=== PATIENT | male | born 1975 | race Caucasian/White ===

== ENCOUNTER 2018-04-27 20:24 | Emergency (ER) | payer BC ==
[2018-04-27 20:33] VITALS: RESP 18; TEMP 98.2
[2018-04-27] MEDS ORDERED: methylPREDNISolone SOD SUCCI 125 MG/2 ML VIAL IV STA (21:07)
[2018-04-27] MEDS ORDERED: KETOROLAC 30 MG/ML 1 ML VIAL IVP STA (21:08)
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
[2018-04-27 21:43] VITALS: BP 137/72; PULSE 85
== END 2018-04-27 21:42 | disposition home or self-care (01) ==
LOC: EC 20:24
DX: M54.12 Radiculopathy, cervical region (principal); I10 Essential (primary) hypertension; Z87.891 Personal history of nicotine dependence
CPT/HCPCS: 93005; 99284; 96374; 96375; J2930; J1885

== ENCOUNTER 2019-10-23 22:37 | Emergency (ER) | payer BC ==
[2019-10-23 23:00] VITALS: RESP 18
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
--- NOTE | 2019-10-24 00:32 | XR ---
EXAMINATION TYPE: XR elbow complete RT DATE OF EXAM: 10/24/2019 COMPARISON: NONE HISTORY: Pain TECHNIQUE: 3 views FINDINGS: I see no fracture nor dislocation. Elbow joint spaces are fairly normal. There is spurring on the olecranon process of the ulna. There is no sign of joint effusion. IMPRESSION: Mild spurring. Otherwise negative exam. No fracture seen.
--- NOTE | 2019-10-24 00:33 | XR ---
EXAMINATION TYPE: XR ankle complete LT DATE OF EXAM: 10/24/2019 COMPARISON: NONE HISTORY: Pain TECHNIQUE: 3 views FINDINGS: There is soft tissue swelling over the lateral malleolus. Ankle mortise is anatomic. Joint spaces are normal. IMPRESSION: Soft tissue swelling. No fracture seen.
--- NOTE | 2019-10-24 00:43 | XR ---
EXAMINATION TYPE: XR shoulder complete LT DATE OF EXAM: 10/24/2019 COMPARISON: NONE HISTORY: Pain TECHNIQUE: 3 views FINDINGS: I see no fracture nor dislocation. Glenohumeral joint is intact. There are no pathologic ca lcifications. IMPRESSION: Negative left shoulder exam.
--- NOTE | 2019-10-24 00:44 | XR ---
EXAMINATION TYPE: XR chest 2V DATE OF EXAM: 10/24/2019 COMPARISON: 06/12/2015 HISTORY: Chest pain TECHNIQUE: Frontal and lateral views of the chest are obtained. FINDINGS: Heart and mediastinum are normal. Lungs are clear. Diaphragm is normal. Bony thorax is int act. Pulmonary vascularity is normal. There is no pleural effusion or pneumothorax. IMPRESSION: Normal chest. No change.
[2019-10-24] MEDS ORDERED: FLUORESCEIN STRIPS 1 MG STRIP RIGHT EYE ONE (01:01)
[2019-10-24] MEDS ORDERED: PROPARACAINE 0.5% OPHTH DROPS 15 ML BTL RIGHT EYE STA (01:01)
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
[2019-10-24 01:17] VITALS: BP 127/91; PULSE 106; TEMP 98.2
== END 2019-10-24 01:25 | disposition home or self-care (01) ==
LOC: EC 22:37
DX: S09.90XA Unspecified injury of head, initial encounter (principal); M25.572 Pain in left ankle and joints of left foot; F10.129 Alcohol abuse with intoxication, unspecified; J32.2 Chronic ethmoidal sinusitis; S00.12XA Contusion of left eyelid and periocular area, initial encounter; S00.11XA Contusion of right eyelid and periocular area, initial encounter; I10 Essential (primary) hypertension; F17.200 Nicotine dependence, unspecified, uncomplicated; Y04.0XXA Assault by unarmed brawl or fight, initial encounter
CPT/HCPCS: 29515; 70450; 70486; 71046; 72125; 82075; 99284

== ENCOUNTER 2020-07-20 06:14 | Emergency (ER) | payer BC ==
[2020-07-20 06:19] VITALS: TEMP 98.6
[2020-07-20] MEDS ORDERED: SODIUM CHLORIDE 0.9% 1,000 ML IV STA (06:30)
[2020-07-20] MEDS ORDERED: SODIUM CHLORIDE 0.9% 500 ML 500 ML IV STA (06:30)
--- NOTE | 2020-07-20 06:33 | ED ---
General Adult HPI - General Chief complaint: Urogenital Stated complaint: unable to urinate Time Seen by Provider: 07/20/20 06:24 Source: patient, RN notes reviewed, old records reviewed Mode of arrival: ambulatory Limitations: no limitations - History of Present Illness Initial comments: Patient is a 44-year-old male presents for in terms today with chief complaint of urinary retention. Patient reports that the last time he urinated was at 7:00 last night. He reports these been drinking plenty of water. He denies any significant abdominal pain at this time. He does report some minor right flank pain. Patient also mentioned to triage nurse that he's been having some intermittent episodes of chest discomfort shooting pains down both arms for the past 2 days. He reports the symptoms occur at rest and with certain movements. He states that his history of hypertension but no previous cardiac disease. Patient states that he's had no history of enlarged prostate regards to urinary retention or significant history of kidney stones. States he's had no change in urination prior to this. He does report frequent constipation episodes sees had bowel resection surgery as a child. Patient states that he has had no falls or trauma to the lower back. He denies any peripheral paresthesias on the lower extremities. He did have a bowel movement this morning. - Related Data Home Medications Medication Instructions Recorded Confirmed Acetaminophen Tab [Tylenol] 650 mg PO Q6H PRN 07/20/20 07/20/20 Ibuprofen [Motrin Ib] 400 mg PO Q6H PRN 07/20/20 07/20/20 Allergies Allergy/AdvReac Type Severity Reaction Status Date / Time No Known Allergies Allergy Verified 07/20/20 08:05 Review of Systems ROS Statement: Those systems with pertinent positive or pertinent negative responses have been documented in the HPI. ROS Other: All systems not noted in ROS Statement are negative. Past Medical History Past Medical History: Hyperlipidemia, Hypertension Additional Past Medical History / Comment(s): 05/01/15 Pt admitted with small partial bowel obstruction. He started about 2300 last nite with R sided low abdominal pain which eventually involved the L lower abdomin. He is nauseated but had not vomitted yet. Walking increased R and L lower abdominal pain. Other HX: Pt states he has had high cholesterol in the past and his B/P was elevated in the ER today, 11/2014 contact dematitis with impetigo. History of Any Multi-Drug Resistant Organisms: None Reported Past Surgical History: Hernia Repair Additional Past Surgical History / Comment(s): L inguinal hernia repair. Colon surgery as a . Past Anesthesia/Blood Transfusion Reactions: No Reported Reaction Additional Past Anesthesia/Blood Transfusion Reaction / Comment(s): Pt has never recieved blood. Past Psychological History: No Psychological Hx Reported Smoking Status: Former smoker Past Alcohol Use History: Occasional Past Drug Use History: None Reported - Past Family History Father History Unknown: Yes Mother Family Medical History: Hypertension, Thyroid Disorder General Exam - General Exam Comments Initial Comments: 44-year-old male. Alert and oriented 3. Limitations: no limitations General appearance: alert Head exam: Present: atraumatic, normocephalic, normal inspection Eye exam: Present: normal appearance, PERRL, EOMI. Absent: scleral icterus, conjunctival injection, periorbital swelling ENT exam: Present: normal exam, mucous membranes moist Neck exam: Present: normal inspection. Absent: tenderness, meningismus, lymphadenopathy Respiratory exam: Present: normal lung sounds bilaterally. Absent: respiratory distress, wheezes, rales, rhonchi, stridor Cardiovascular Exam: Present: regular rate, normal rhythm, normal heart sounds. Absent: systolic murmur, diastolic murmur, rubs, gallop, clicks GI/Abdominal exam: Present: soft, normal bowel sounds. Absent: distended, tenderness, guarding, rebound, rigid Extremities exam: Present: normal inspection, full ROM, normal capillary refill. Absent: tenderness, pedal edema, joint swelling, calf tenderness Back exam: Present: normal inspection Neurological exam: Present: alert, oriented X3, CN II-XII intact Psychiatric exam: Present: normal affect, normal mood Skin exam: Present: warm, dry, intact, normal color. Absent: rash Course Vital Signs 07/20/20 07/20/20 06:15 08:25 Temperature 98.6 F 98.6 F Pulse Rate 110 H 88 Respiratory 20 19 Rate Blood Pressure 156/85 140/90 O2 Sat by Pulse 97 97 Oximetry - Reevaluation(s) Reevaluation #1: 07/20/20 07:25 Patient had a bladder scan which showed a total of 1 50 mL to 200 mL of urine within the bladder. EKG Findings - EKG Comments: EKG Findings:: EKG shows sinus tachycardia possible left atrial monitor. Borderline EKG. Ventricular rate of 10 1 bpm. Verbal is 154 ms. QRS duration 78 ms. QT QTc is 346/448 ms Medical Decision Making - Medical Decision Making Patient was reevaluated respiratory med. He is able to urinate on his own states he is feeling better at this time. Discussed possible passing kidney stone, however his urine shows no blood or any other significant signss of infection. Pt has normal EKG and labs are unremarkable including troponin. Discussed with the paresthesias on his arms likely pinched nerve pain. Discussed Patient instructed to follow-up with his primary care physician. He states he feels well unable to urinate he would like to go home. Discussed if he has any other further pains or other complaints he can return for rebound. His KUB did show constipation which could contribute to his difficulty with urination. Advised. First normal bowel movements. - Lab Data Result diagrams: 07/20/20 06:47 07/20/20 06:47 Lab Results 07/20/20 07/20/20 07/20/20 Range/Units 06:47 06:47 06:47 WBC 11.3 H (3.8-10.6) k/uL RBC 5.33 (4.30-5.90) m/uL Hgb 16.6 (13.0-17.5) gm/dL Hct 49.6 (39.0-53.0) % MCV 93.0 (80.0-100.0) fL MCH 31.1 (25.0-35.0) pg MCHC 33.5 (31.0-37.0) g/dL RDW 13.3 (11.5-15.5) % Plt Count 197 (150-450) k/uL Neutrophils % 67 % Lymphocytes % 22 % Monocytes % 6 % Eosinophils % 3 % Basophils % 1 % Neutrophils # 7.6 (1.3-7.7) k/uL Lymphocytes # 2.5 (1.0-4.8) k/uL Monocytes # 0.7 (0-1.0) k/uL Eosinophils # 0.3 (0-0.7) k/uL Basophils # 0.1 (0-0.2) k/uL PT 9.9 (9.0-12.0) sec INR 1.0 (<1.2) APTT 22.0 (22.0-30.0) sec Sodium 138 (137-145) mmol/L Potassium 3.7 (3.5-5.1) mmol/L Chloride 104 (98-107) mmol/L Carbon Dioxide 25 (22-30) mmol/L Anion Gap 9 mmol/L BUN 13 (9-20) mg/dL Creatinine 1.40 H (0.66-1.25) mg/dL Est GFR (CKD-EPI)AfAm 69 (>60 ml/min/1.73 sqM) Est GFR (CKD-EPI)NonAf 60 (>60 ml/min/1.73 sqM) Glucose 95 (74-99) mg/dL Calcium 9.3 (8.4-10.2) mg/dL Magnesium 1.7 (1.6-2.3) mg/dL Total Bilirubin 1.2 (0.2-1.3) mg/dL AST 58 (17-59) U/L ALT 63 H (4-49) U/L Alkaline Phosphatase 97 (38-126) U/L Troponin I (0.000-0.034) ng/mL Total Protein 7.6 (6.3-8.2) g/dL Albumin 4.7 (3.5-5.0) g/dL Lipase 135 (23-300) U/L Urine Color Urine Appearance (Clear) Urine pH (5.0-8.0) Ur Specific [place] (1.001-1.035) Urine Protein (Negative) Urine Glucose (UA) (Negative) Urine Ketones (Negative) Urine Blood (Negative) Urine Nitrite (Negative) Urine Bilirubin (Negative) Urine Urobilinogen (<2.0) mg/dL Ur Leukocyte Esterase (Negative) 07/20/20 07/20/20 Range/Units 06:47 08:19 WBC (3.8-10.6) k/uL RBC (4.30-5.90) m/uL Hgb (13.0-17.5) gm/dL Hct (39.0-53.0) % MCV (80.0-100.0) fL MCH (25.0-35.0) pg MCHC (31.0-37.0) g/dL RDW (11.5-15.5) % Plt Count (150-450) k/uL Neutrophils % % Lymphocytes % % Monocytes % % Eosinophils % % Basophils % % Neutrophils # (1.3-7.7) k/uL Lymphocytes # (1.0-4.8) k/uL Monocytes # (0-1.0) k/uL Eosinophils # (0-0.7) k/uL Basophils # (0-0.2) k/uL PT (9.0-12.0) sec INR (<1.2) APTT (22.0-30.0) sec Sodium (137-145) mmol/L Potassium (3.5-5.1) mmol/L Chloride (98-107) mmol/L Carbon Dioxide (22-30) mmol/L Anion Gap mmol/L BUN (9-20) mg/dL Creatinine (0.66-1.25) mg/dL Est GFR (CKD-EPI)AfAm (>60 ml/min/1.73 sqM) Est GFR (CKD-EPI)NonAf (>60 ml/min/1.73 sqM) Glucose (74-99) mg/dL Calcium (8.4-10.2) mg/dL Magnesium (1.6-2.3) mg/dL Total Bilirubin (0.2-1.3) mg/dL AST (17-59) U/L ALT (4-49) U/L Alkaline Phosphatase (38-126) U/L Troponin I <0.012 (0.000-0.034) ng/mL Total Protein (6.3-8.2) g/dL Albumin (3.5-5.0) g/dL Lipase (23-300) U/L Urine Color Yellow Urine Appearance Clear (Clear) Urine pH 5.5 (5.0-8.0) Ur Specific [place] 1.017 (1.001-1.035) Urine Protein Negative (Negative) Urine Glucose (UA) Negative (Negative) Urine Ketones 1+ H (Negative) Urine Blood Negative (Negative) Urine Nitrite Negative (Negative) Urine Bilirubin Negative (Negative) Urine Urobilinogen <2.0 (<2.0) mg/dL Ur Leukocyte Esterase Negative (Negative) - Radiology Data Radiology results: report reviewed Chest x-ray shows no acute cardio coronary process. KUB shows no free air. Or bowel ejection. Mild stool burn. Disposition Clinical Impression: Constipation, Difficulty in urination Disposition: HOME SELF-CARE Condition: Good Instructions (If sedation given, give patient instructions): Constipation (ED) Additional Instructions: Encouraged fluid intake. Follow-up with PCP. Use stool softners to help promote bowel movements. Is patient prescribed a controlled substance at d/c from ED?: No Referrals: None,Stated [Primary Care Provider] - 1-2 days Time of Disposition: 09:28
[2020-07-20 06:55] LABS: Basophils # (A) 0.1 k/uL (0-0.2); Basophils % (A) 1 %; Eosinophils # (A) 0.3 k/uL (0-0.7); Eosinophils % (A) 3 %; HCT 49.6 % (39.0-53.0); HGB 16.6 gm/dL (13.0-17.5); Lymphocytes # (A) 2.5 k/uL (1.0-4.8); Lymphocytes % (A) 22 %; MCH 31.1 pg (25.0-35.0); MCHC 33.5 g/dL (31.0-37.0); Mean Platelet Volume 7.6; Monocytes # (A) 0.7 k/uL (0-1.0); Monocytes % (A) 6 %; Neutrophils # (A) 7.6 k/uL (1.3-7.7); Neutrophils % (A) 67 %; Platelet Count 197 k/uL (150-450); RBC 5.33 m/uL (4.30-5.90); RDW 13.3 % (11.5-15.5); WBC 11.3 k/uL (3.8-10.6)
[2020-07-20 07:02] LABS: Prothrombin Time 9.9 sec (9.0-12.0)
[2020-07-20] MEDS ORDERED: KETOROLAC 15 MG/ML 1 ML VIAL IVP STA (07:04)
[2020-07-20 07:06] LABS: Albumin 4.7 g/dL (3.5-5.0); Calcium 9.3 mg/dL (8.4-10.2); Magnesium 1.7 mg/dL (1.6-2.3); Potassium 3.7 mmol/L (3.5-5.1); Total Bilirubin 1.2 mg/dL (0.2-1.3); Total Protein 7.6 g/dL (6.3-8.2)
--- NOTE | 2020-07-20 07:13 | XR ---
EXAMINATION TYPE: XR chest 2V DATE OF EXAM: 07/20/2020 COMPARISON: None HISTORY: 44-year-old male with chest pain TECHNIQUE: PA and lateral views FINDINGS: The cardiomediastinal silhouette, aorta, and pulmonary vasculature are within normal limits. Lungs an d pleural spaces are clear. IMPRESSION: No acute cardiopulmonary process.
--- NOTE | 2020-07-20 07:14 | XR ---
EXAMINATION TYPE: XR KUB DATE OF EXAM: 07/20/2020 Comparison: 01/29/2016 Clinical History: 44-year-old male pain Findings: No evidence for free intraperitoneal air. No dilated small bowel or air-fluid levels. Scattered mild stool. Air extends distally to the rectum. No suspicious calcifications are seen. Superior femoral head neck junction osseous excrescences can predispose the patient to femoral acetab ular impingement syndrome. Correlate for any chronic hip pain. Impression: No free air or bowel obstruction. Mild stool burden.
[2020-07-20] MEDS ORDERED: SODIUM CHLORIDE 0.9% 2,000 ML IV ONE (07:24)
[2020-07-20 08:35] LABS: Appearance,Urine Clear (Clear); Bilirubin,Urine Negative (Negative); Blood,Urine Negative (Negative); Color,Urine Yellow; Glucose,Urine (UA) Negative (Negative); Ketones,Urine 1+ (Negative); Leukocyte Esterase,Urine Negative (Negative); Nitrite,Urine Negative (Negative); PH, Urine 5.5 (5.0-8.0); Protein,Urine Negative (Negative); Specific Gravity,Urine 1.017 (1.001-1.035); Urobilinogen,Urine <2.0 mg/dL (<2.0)
[2020-07-20 10:03] VITALS: BP 133/95; PULSE 91; RESP 18
== END 2020-07-20 10:03 | disposition home or self-care (01) ==
LOC: EC 06:14
DX: K59.00 Constipation, unspecified (principal); R39.198 Other difficulties with micturition; Z87.891 Personal history of nicotine dependence
CPT/HCPCS: 36415; 93005; 83880; 80053; 83690; 83735; 84484; 85025; 85610; 85730; 81003; 71046; 74018; 99284; 96374; 96361 ×3; J1885

== ENCOUNTER 2020-09-22 13:19 | Emergency (ER) | payer BC ==
[2020-09-22 13:23] VITALS: TEMP 98.1
[2020-09-22] MEDS ORDERED: SODIUM CHLORIDE 0.9% 1,000 ML IV STA (13:28)
[2020-09-22] MEDS ORDERED: KETOROLAC 15 MG/ML 1 ML VIAL IVP STA (13:28)
--- NOTE | 2020-09-22 13:30 | ED ---
General Adult HPI - General Chief complaint: Abdominal Pain Stated complaint: Flank Pain Time Seen by Provider: 09/22/20 13:24 Source: patient, RN notes reviewed Mode of arrival: ambulatory Limitations: no limitations - History of Present Illness Initial comments: Patient is a pleasant 44-year-old male presenting to the emergency Department with complaints of right flank pain. Onset of symptoms was around a week ago. Symptoms do wax and wane. Discomfort mild at this time. Discomfort is sometimes worse with position changes or laying down in bed. Patient thinks his urine may be a little bit darker than normal. No dysuria or hematuria. Patient did have similar symptoms this summer however they resolved after a few days. No fever. No nausea vomiting. No constipation or diarrhea. No injury. - Related Data Home Medications Medication Instructions Recorded Confirmed Acetaminophen Tab [Tylenol] 650 mg PO Q6H PRN 07/20/20 07/20/20 Ibuprofen [Motrin Ib] 400 mg PO Q6H PRN 07/20/20 07/20/20 Previous Rx's Medication Instructions Recorded Cyclobenzaprine [Flexeril] 10 mg PO TID PRN #12 tablet 09/22/20 Allergies Allergy/AdvReac Type Severity Reaction Status Date / Time No Known Allergies Allergy Verified 09/22/20 13:23 Review of Systems ROS Statement: Those systems with pertinent positive or pertinent negative responses have been documented in the HPI. ROS Other: All systems not noted in ROS Statement are negative. Constitutional: Denies: fever Eyes: Denies: eye pain ENT: Denies: ear pain Respiratory: Denies: cough Cardiovascular: Denies: chest pain Endocrine: Denies: fatigue Gastrointestinal: Reports: as per HPI. Denies: nausea, vomiting Genitourinary: Reports: as per HPI. Denies: dysuria Musculoskeletal: Reports: as per HPI Skin: Denies: rash Neurological: Denies: weakness Past Medical History Past Medical History: Hyperlipidemia, Hypertension Additional Past Medical History / Comment(s): 05/01/15 Pt admitted with small partial bowel obstruction. He started about 2300 last nite with R sided low abdominal pain which eventually involved the L lower abdomin. He is nauseated but had not vomitted yet. Walking increased R and L lower abdominal pain. Other HX: Pt states he has had high cholesterol in the past and his B/P was elevated in the ER today, 11/2014 contact dematitis with impetigo. History of Any Multi-Drug Resistant Organisms: None Reported Past Surgical History: Hernia Repair Additional Past Surgical History / Comment(s): L inguinal hernia repair. Colon surgery as a . Past Anesthesia/Blood Transfusion Reactions: No Reported Reaction Additional Past Anesthesia/Blood Transfusion Reaction / Comment(s): Pt has never recieved blood. Past Psychological History: No Psychological Hx Reported Smoking Status: Former smoker Past Alcohol Use History: Occasional Past Drug Use History: None Reported - Past Family History Father History Unknown: Yes Mother Family Medical History: Hypertension, Thyroid Disorder General Exam Limitations: no limitations General appearance: alert, in no apparent distress Eye exam: Present: normal appearance Neck exam: Present: normal inspection Respiratory exam: Present: normal lung sounds bilaterally Cardiovascular Exam: Present: regular rate, normal rhythm Expanded Peripheral pulses: 2+: Posterior Tibialis (R), Posterior Tibialis (L) GI/Abdominal exam: Present: soft. Absent: distended, tenderness, guarding, rebound, rigid, pulsatile mass Extremities exam: Present: normal inspection Back exam: Present: tenderness (Mild tenderness below the right CVA) Neurological exam: Present: alert. Absent: motor sensory deficit Psychiatric exam: Present: normal affect, normal mood Skin exam: Present: normal color Course Vital Signs 09/22/20 13:21 Temperature 98.1 F Pulse Rate 87 Respiratory 20 Rate Blood Pressure 175/94 O2 Sat by Pulse 20 L Oximetry Medical Decision Making - Medical Decision Making Patient reevaluated and updated. Patient is feeling much better following Toradol. - Lab Data Result diagrams: 09/22/20 13:39 09/22/20 13:39 Lab Results 09/22/20 09/22/20 09/22/20 Range/Units 13:39 13:39 13:39 WBC 8.7 (3.8-10.6) k/uL RBC 5.74 (4.30-5.90) m/uL Hgb 17.9 H (13.0-17.5) gm/dL Hct 54.6 H (39.0-53.0) % MCV 95.1 (80.0-100.0) fL MCH 31.1 (25.0-35.0) pg MCHC 32.7 (31.0-37.0) g/dL RDW 13.2 (11.5-15.5) % Plt Count 226 (150-450) k/uL Neutrophils % 70 % Lymphocytes % 20 % Monocytes % 5 % Eosinophils % 2 % Basophils % 1 % Neutrophils # 6.1 (1.3-7.7) k/uL Lymphocytes # 1.7 (1.0-4.8) k/uL Monocytes # 0.5 (0-1.0) k/uL Eosinophils # 0.2 (0-0.7) k/uL Basophils # 0.1 (0-0.2) k/uL PT 9.6 (9.0-12.0) sec INR 0.9 (<1.2) APTT 23.1 (22.0-30.0) sec Sodium (137-145) mmol/L Potassium (3.5-5.1) mmol/L Chloride (98-107) mmol/L Carbon Dioxide (22-30) mmol/L Anion Gap mmol/L BUN (9-20) mg/dL Creatinine (0.66-1.25) mg/dL Est GFR (CKD-EPI)AfAm (>60 ml/min/1.73 sqM) Est GFR (CKD-EPI)NonAf (>60 ml/min/1.73 sqM) Glucose (74-99) mg/dL Calcium (8.4-10.2) mg/dL Total Bilirubin (0.2-1.3) mg/dL AST (17-59) U/L ALT (4-49) U/L Alkaline Phosphatase (38-126) U/L Total Protein (6.3-8.2) g/dL Albumin (3.5-5.0) g/dL Amylase (30-110) U/L Lipase (23-300) U/L Urine Color Yellow Urine Appearance Clear (Clear) Urine pH 5.5 (5.0-8.0) Ur Specific [place] 1.024 (1.001-1.035) Urine Protein Negative (Negative) Urine Glucose (UA) Negative (Negative) Urine Ketones Negative (Negative) Urine Blood Negative (Negative) Urine Nitrite Negative (Negative) Urine Bilirubin Negative (Negative) Urine Urobilinogen <2.0 (<2.0) mg/dL Ur Leukocyte Esterase Negative (Negative) 30/20 Range/Units 13:39 WBC (3.8-10.6) k/uL RBC (4.30-5.90) m/uL Hgb (13.0-17.5) gm/dL Hct (39.0-53.0) % MCV (80.0-100.0) fL MCH (25.0-35.0) pg MCHC (31.0-37.0) g/dL RDW (11.5-15.5) % Plt Count (150-450) k/uL Neutrophils % % Lymphocytes % % Monocytes % % Eosinophils % % Basophils % % Neutrophils # (1.3-7.7) k/uL Lymphocytes # (1.0-4.8) k/uL Monocytes # (0-1.0) k/uL Eosinophils # (0-0.7) k/uL Basophils # (0-0.2) k/uL PT (9.0-12.0) sec INR (<1.2) APTT (22.0-30.0) sec Sodium 138 (137-145) mmol/L Potassium 4.8 (3.5-5.1) mmol/L Chloride 107 (98-107) mmol/L Carbon Dioxide 25 (22-30) mmol/L Anion Gap 6 mmol/L BUN 15 (9-20) mg/dL Creatinine 0.97 (0.66-1.25) mg/dL Est GFR (CKD-EPI)AfAm >90 (>60 ml/min/1.73 sqM) Est GFR (CKD-EPI)NonAf >90 (>60 ml/min/1.73 sqM) Glucose 105 H (74-99) mg/dL Calcium 9.5 (8.4-10.2) mg/dL Total Bilirubin 0.6 (0.2-1.3) mg/dL AST 43 (17-59) U/L ALT 61 H (4-49) U/L Alkaline Phosphatase 99 (38-126) U/L Total Protein 7.6 (6.3-8.2) g/dL Albumin 4.4 (3.5-5.0) g/dL Amylase 89 (30-110) U/L Lipase 319 H (23-300) U/L Urine Color Urine Appearance (Clear) Urine pH (5.0-8.0) Ur Specific [place] (1.001-1.035) Urine Protein (Negative) Urine Glucose (UA) (Negative) Urine Ketones (Negative) Urine Blood (Negative) Urine Nitrite (Negative) Urine Bilirubin (Negative) Urine Urobilinogen (<2.0) mg/dL Ur Leukocyte Esterase (Negative) - Radiology Data Radiology results: report reviewed (Computed tomography scan abdomen pelvis shows possible constipation otherwise no acute abnormality) Disposition Clinical Impression: Flank pain Disposition: HOME SELF-CARE Condition: Stable Instructions (If sedation given, give patient instructions): Flank Pain (ED), Constipation (ED), High Fiber Diet (ED) Additional Instructions: Please follow-up with primary care physician in the next couple of days for recheck. Drink half bottle of magnesium citrate now and half tomorrow if needed . Prescription for muscle relaxers has been sent to your pharmacy: [facility] Prescriptions: Cyclobenzaprine [Flexeril] 10 mg PO TID PRN #12 tablet PRN Reason: Pain Is patient prescribed a controlled substance at d/c from ED?: No Referrals: Bernardo Martinez [STAFF PHYSICIAN] - 1-2 days Time of Disposition: 14:37
[2020-09-22 14:02] LABS: ALT 61 U/L (4-49); AST 43 U/L (17-59); African American GFR (CKD) >90 (>60 ml/min/1.73 sqM); Albumin 4.4 g/dL (3.5-5.0); Alkaline Phosphatase 99 U/L (38-126); Amylase 89 U/L (30-110); Anion Gap 6 mmol/L; Blood Urea Nitrogen 15 mg/dL (9-20); Calcium 9.5 mg/dL (8.4-10.2); Carbon Dioxide 25 mmol/L (22-30); Chloride 107 mmol/L (98-107); Glucose 105 mg/dL (74-99); Non-African American GFR(CKD) >90 (>60 ml/min/1.73 sqM); Potassium 4.8 mmol/L (3.5-5.1); Sodium 138 mmol/L (137-145); Total Bilirubin 0.6 mg/dL (0.2-1.3); Total Protein 7.6 g/dL (6.3-8.2)
[2020-09-22 14:05] LABS: Basophils # (A) 0.1 k/uL (0-0.2); Basophils % (A) 1 %; Eosinophils # (A) 0.2 k/uL (0-0.7); Eosinophils % (A) 2 %; HCT 54.6 % (39.0-53.0); HGB 17.9 gm/dL (13.0-17.5); Lymphocytes # (A) 1.7 k/uL (1.0-4.8); Lymphocytes % (A) 20 %; MCH 31.1 pg (25.0-35.0); MCHC 32.7 g/dL (31.0-37.0); MCV 95.1 fL (80.0-100.0); Mean Platelet Volume 7.5; Monocytes # (A) 0.5 k/uL (0-1.0); Monocytes % (A) 5 %; Neutrophils # (A) 6.1 k/uL (1.3-7.7); Neutrophils % (A) 70 %; Platelet Count 226 k/uL (150-450); RBC 5.74 m/uL (4.30-5.90); RDW 13.2 % (11.5-15.5); WBC 8.7 k/uL (3.8-10.6)
[2020-09-22 14:12] LABS: Appearance,Urine Clear (Clear); Bilirubin,Urine Negative (Negative); Blood,Urine Negative (Negative); Color,Urine Yellow; Glucose,Urine (UA) Negative (Negative); INR 0.9 (<1.2); Ketones,Urine Negative (Negative); Leukocyte Esterase,Urine Negative (Negative); Nitrite,Urine Negative (Negative); PH, Urine 5.5 (5.0-8.0); Partial Thromboplastin Time 23.1 sec (22.0-30.0); Protein,Urine Negative (Negative); Prothrombin Time 9.6 sec (9.0-12.0); Specific Gravity,Urine 1.024 (1.001-1.035); Urobilinogen,Urine <2.0 mg/dL (<2.0)
--- NOTE | 2020-09-22 14:29 | CT ---
EXAMINATION TYPE: CT abdomen pelvis wo con DATE OF EXAM: 09/22/2020 COMPARISON: CT abdomen pelvis 07/27/2015 HISTORY: Right flank pain for 6 days, negative renal stones and gross hematuria CT DLP: 534.6 mGycm Automated exposure control for dose reduction was used. TECHNIQUE: Helical acquisition of images was performed from the lung bases through the pelvis. CONTRAST: Performed without Oral Contrast and without intravenous contrast. FINDINGS: LUNG BASES: Normal. LIVER: Normal attenuation and size. BILIARY SYSTEM: No intrahepatic or extrahepatic biliary ductal dilatation. PANCREAS: No peripancreatic stranding or fluid collection. SPLEEN: Not enlarged. ADRENALS: Normal. KIDNEYS: No hydronephrosis or urolithiasis. BOWEL: No obstruction or thickening. Appendix demonstrates appendicolith and is otherwise normal. Th ere is diffuse small bowel feces sign. Moderate amount of diffuse colonic fecal debris. PERITONEUM: No pneumoperitoneum. No free fluid. LYMPH NODES: No lymphadenopathy. PELVIS: Left hydrocele. Nondistended urinary bladder. VASCULATURE: No abdominal aortic aneurysm. MUSCULOSKELETAL: Degenerative changes of the spine. IMPRESSION: 1. No hydronephrosis or nephrolithiasis. 2. Nonspecific fecalization of the small bowel, with no evidence of bowel obstruction. Findings may r epresent slowed intestinal transit. Correlate for constipation. 3. Left hydrocele.
[2020-09-22] MEDS ORDERED: MAGNESIUM CITRATE 296 ML BOTTLE PO ONE (14:38)
[2020-09-22 15:09] VITALS: BP 158/74; PULSE 82; RESP 16
== END 2020-09-22 15:08 | disposition home or self-care (01) ==
LOC: EC 13:19
DX: R10.9 Unspecified abdominal pain (principal); Z87.891 Personal history of nicotine dependence
CPT/HCPCS: 36415; 80053; 82150; 83690; 85025; 85610; 85730; 81003; 74176; 99284; 96374; 96361; J1885

== ENCOUNTER 2021-09-25 23:16 | Emergency (ER) | payer BC ==
[2021-09-25] MEDS ORDERED: SODIUM CHLORIDE 0.9% 1,000 ML IV STA (23:55)
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
--- NOTE | 2021-09-26 00:16 | XR ---
EXAMINATION TYPE: XR chest 1V portable DATE OF EXAM: 09/26/2021 COMPARISON: 07/20/2020 HISTORY: Short of breath TECHNIQUE: FINDINGS: Heart and mediastinum are normal. Lungs are clear. Diaphragm is normal. Bony thorax appears normal. IMPRESSION: Normal chest. No change.
[2021-09-26 00:24] LABS: VBG PH 7.41 (7.31-7.41)
[2021-09-26 00:28] LABS: Basophils # (A) 0.1 k/uL (0-0.2); Basophils % (A) 1 %; Eosinophils # (A) 0.2 k/uL (0-0.7); Eosinophils % (A) 2 %; HCT 47.5 % (39.0-53.0); HGB 16.3 gm/dL (13.0-17.5); Lymphocytes # (A) 2.3 k/uL (1.0-4.8); Lymphocytes % (A) 22 %; MCH 31.8 pg (25.0-35.0); MCHC 34.4 g/dL (31.0-37.0); MCV 92.5 fL (80.0-100.0); Mean Platelet Volume 7.8; Monocytes # (A) 0.5 k/uL (0-1.0); Monocytes % (A) 5 %; Neutrophils # (A) 7.1 k/uL (1.3-7.7); Neutrophils % (A) 68 %; Platelet Count 241 k/uL (150-450); RBC 5.13 m/uL (4.30-5.90); RDW 13.9 % (11.5-15.5); WBC 10.4 k/uL (3.8-10.6)
[2021-09-26 00:32] LABS: INR 0.9 (<1.2); Partial Thromboplastin Time 22.6 sec (22.0-30.0); Prothrombin Time 9.7 sec (9.0-12.0)
[2021-09-26 00:36] LABS: ALT 54 U/L (4-49); AST 61 U/L (17-59); African American GFR (CKD) >90 (>60 ml/min/1.73 sqM); Albumin 4.4 g/dL (3.5-5.0); Alkaline Phosphatase 92 U/L (38-126); Anion Gap 12 mmol/L; Blood Urea Nitrogen 17 mg/dL (9-20); Carbon Dioxide 21 mmol/L (22-30); Chloride 106 mmol/L (98-107); Glucose 98 mg/dL (74-99); Magnesium 2.2 mg/dL (1.6-2.3); Non-African American GFR(CKD) 80 (>60 ml/min/1.73 sqM); Phosphorus 3.8 mg/dL (2.5-4.5); Potassium 4.6 mmol/L (3.5-5.1); Sodium 139 mmol/L (137-145); Total Bilirubin 0.4 mg/dL (0.2-1.3); Total Protein 7.3 g/dL (6.3-8.2)
[2021-09-26] MEDS ORDERED: SODIUM CHLORIDE 0.9% 1,000 ML IV STA (00:41)
[2021-09-26] MEDS ORDERED: MORPHINE SULFATE 4 MG/ML SYRINGE IVP STA (00:44)
[2021-09-26 00:55] VITALS: RESP 18
[2021-09-26 03:25] VITALS: BP 136/88; PULSE 98; TEMP 98.1
== END 2021-09-26 03:18 | disposition home or self-care (01) ==
LOC: EC 23:16
DX: T59.811A Toxic effect of smoke, accidental (unintentional), initial encounter (principal); R51.9 Headache, unspecified; I10 Essential (primary) hypertension; Z87.891 Personal history of nicotine dependence
CPT/HCPCS: 36415; 93005; 80053; 82375; 82803; 83605; 83735; 84100; 84484; 85025; 85610; 85730; 71045; 99284; 96374; 96361; J2270

== ENCOUNTER 2021-10-02 04:44 | Emergency (ER) | payer BC ==
[2021-10-02 05:02] VITALS: TEMP 98.1
[2021-10-02] MEDS ORDERED: ORPHENADRINE 30 MG/ML 2 ML VIAL IM STA (05:17)
[2021-10-02] MEDS ORDERED: KETOROLAC 15 MG/ML 1 ML VIAL IM STA (05:17)
[2021-10-02] MEDS ORDERED: predniSONE 20 MG TAB PO STA (06:11)
[2021-10-02] MEDS ORDERED: HYDROmorphone 1 MG/ML 1 ML SYRINGE IM STA (06:11)
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
[2021-10-02 06:46] VITALS: RESP 18
[2021-10-02 07:33] VITALS: BP 153/97; PULSE 77
== END 2021-10-02 07:33 | disposition home or self-care (01) ==
LOC: EC 04:44
DX: M54.30 Sciatica, unspecified side (principal); I10 Essential (primary) hypertension; Z87.891 Personal history of nicotine dependence
CPT/HCPCS: 99283; 96372 ×2; J2360; J1170; J1885; J7512

== ENCOUNTER 2023-04-27 13:01 | Emergency (ER) | payer BC, OTHER ==
[2023-04-27 13:05] VITALS: TEMP 98.1
[2023-04-27] MEDS ORDERED: diazePAM 5 MG TAB PO STA (13:18)
[2023-04-27] MEDS ORDERED: KETOROLAC 15 MG/ML 1 ML VIAL IM STA (13:18)
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
[2023-04-27] MEDS ORDERED: HYDROmorphone 0.5 MG/0.5 ML SYRINGE IM STA (14:19)
[2023-04-27 14:49] VITALS: RESP 14
[2023-04-27 15:55] VITALS: BP 161/95; PULSE 67
== END 2023-04-27 15:55 | disposition home or self-care (01) ==
LOC: EC 13:01
DX: M54.12 Radiculopathy, cervical region (principal); I10 Essential (primary) hypertension; Z87.891 Personal history of nicotine dependence
CPT/HCPCS: 99283 ×2; 96372 ×3; J1885; J1170

== ENCOUNTER 2023-04-29 10:19 | Emergency (ER) | payer BC, OTHER ==
[2023-04-29] MEDS ORDERED: KETOROLAC 15 MG/ML 1 ML VIAL IM STA (10:54)
[2023-04-29] MEDS ORDERED: KETOROLAC 15 MG/ML 1 ML VIAL IVP STA (10:54)
--- NOTE | 2023-04-29 10:57 | ED ---
Back Pain HPI - General Chief Complaint: Back Pain/Injury Stated Complaint: Right arm pain, chest pain Time Seen by Provider: 04/29/23 10:43 Source: patient Limitations: no limitations - History of Present Illness Initial Comments: Plain 7-year-old male presents to the ED with chief complaint of neck/shoulder pain. Patient previously here 2 days ago and was felt to have musculoskeletal pain and prescribed Robaxin, [place], and steroids. States that he is taking this as prescribed but reports pain increasing in severity. Denies any new injury/trauma. Denies IVDA. Denies sadde anesthesia. Denies incontinence. No other complaints. - Related Data Home Medications Medication Instructions Recorded Confirmed Ibuprofen [Motrin Ib] 800 mg PO Q6H PRN 07/20/20 09/22/20 Previous Rx's Medication Instructions Recorded Cyclobenzaprine [Flexeril] 10 mg PO TID PRN #12 tablet 09/22/20 HYDROcodone/APAP 5-325MG [[place] 1 tab PO Q4HR PRN 3 Days #18 tab 10/02/21 5-325] methocarbamoL [Robaxin-750] 750 mg PO TID PRN #30 tablet 10/02/21 predniSONE 60 mg PO DAILY #30 tab 10/02/21 HYDROcodone/APAP 5-325MG [[place] 1 tab PO Q6HR PRN 3 Days #12 tab 04/27/23 5-325] methocarbamoL [Robaxin-750] 750 mg PO TID PRN #30 tab 04/27/23 predniSONE 50 mg PO DAILY 5 Days #5 tab 04/27/23 Allergies Allergy/AdvReac Type Severity Reaction Status Date / Time No Known Allergies Allergy Verified 04/29/23 10:33 Review of Systems ROS Statement: Those systems with pertinent positive or pertinent negative responses have been documented in the HPI. ROS Other: All systems not noted in ROS Statement are negative. Past Medical History Past Medical History: Hyperlipidemia, Hypertension Additional Past Medical History / Comment(s): 05/01/15 Pt admitted with small partial bowel obstruction. He started about 2300 last nite with R sided low abdominal pain which eventually involved the L lower abdomin. He is nauseated but had not vomitted yet. Walking increased R and L lower abdominal pain. Other HX: Pt states he has had high cholesterol in the past and his B/P was elevated in the ER today, 11/2014 contact dematitis with impetigo. History of Any Multi-Drug Resistant Organisms: None Reported Past Surgical History: Hernia Repair Additional Past Surgical History / Comment(s): L inguinal hernia repair. Colon surgery as a . Past Anesthesia/Blood Transfusion Reactions: No Reported Reaction Additional Past Anesthesia/Blood Transfusion Reaction / Comment(s): Pt has never recieved blood. Past Psychological History: No Psychological Hx Reported Smoking Status: Former smoker Past Alcohol Use History: Occasional Past Drug Use History: None Reported - Past Family History Father History Unknown: Yes Mother Family Medical History: Hypertension, Thyroid Disorder General Exam Limitations: no limitations Head exam: Present: atraumatic, normocephalic Eye exam: Present: normal appearance, PERRL, EOMI ENT exam: Present: normal exam, mucous membranes moist Neck exam: Present: normal inspection, tenderness (Tenderness to palpation over the mid spine over C6-C7. No overlying warmth or erythema.), full ROM (Able to range neck but with difficulty secondary to pain), other (Reproducible pain of the neck and right shoulder with axial loading.) Respiratory exam: Present: normal lung sounds bilaterally Cardiovascular Exam: Present: regular rate, normal rhythm Extremities exam: Present: other (And sensation 5/5 in bilateral upper and lower extremities.) Neurological exam: Present: oriented X3, CN II-XII intact Psychiatric exam: Present: normal affect, normal mood Skin exam: Present: warm, dry Course Vital Signs 04/29/23 10:31 Temperature 98.7 F Pulse Rate 83 Respiratory 20 Rate Blood Pressure 170/89 O2 Sat by Pulse 99 Oximetry Medical Decision Making - Medical Decision Making Was pt. sent in by a medical professional or institution (, PA, QUALITY REVIEWER, urgent care, hospital, or prison...) When possible be specific @ -No Did you speak to anyone other than the patient for history (EMS, parent, family, police, friend...)? What history was obtained from this source @ -No Did you review nursing and triage notes (agree or disagree)? Why? @ -I reviewed and agree with nursing and triage notes Were old charts reviewed (outside hosp., previous admission, EMS record, old EKG, old radiological studies, urgent care reports/EKG's, prison records)? Report findings @ -Old charts reviewed. Seen 2 days ago with the same complaints. At that time had no imaging. Differential Diagnosis (chest pain, altered mental status, abdominal pain women, abdominal pain men, vaginal bleeding, weakness, fever, dyspnea, syncope, headache, dizziness, GI bleed, back pain, seizure, CVA, palpatations, mental health, musculoskeletal)? @ -Differential back pain EKG interpreted by me (3pts min.). @ -As above X-rays interpreted by me (1pt min.). @ -X-ray of the cervical spine showed no acute findings. CT interpreted by me (1pt min.). @ -None done U/S interpreted by me (1pt. min.). @ -None done What testing was considered but not performed or refused? (CT, X-rays, U/S, labs)? Why? @ -None What meds were considered but not given or refused? Why? @ -None Did you discuss the management of the patient with other professionals (professionals i.e. , PA, QUALITY REVIEWER, lab, RT, psych nurse, social sciences professor, train driver, teacher, tax revenue officer, telephonic nurse case manager)? Give summary @ -No Was smoking cessation discussed for >3mins.? @ -No Was critical care preformed (if so, how long)? @ -No Were there social determinants of health that impacted care today? How? (Homelessness, low income, unemployed, alcoholism, drug addiction, transportation, low edu. Level, literacy, decrease access to med. care, custodial, rehab)? @ -No Was there de-escalation of care discussed even if they declined (Discuss DNR or withdrawal of care, Hospice)? DNR status @ -No What co-morbidities impacted this encounter? (DM, HTN, Smoking, COPD, CAD, Cancer, CVA, ARF, Chemo, Hep., AIDS, mental health diagnosis, sleep apnea, morbid obesity)? @ -None Was patient admitted / discharged? Hospital course, mention meds given and route, prescriptions, significant lab abnormalities, going to OR and other pertinent info. @ -Discharged. X-ray findings as above. Patient had improvement of pain with Toradol. Advised to continue pain medications prescribed to him on prior visit and follow-up with orthopedics. Undiagnosed new problem with uncertain prognosis? @ -No Drug Therapy requiring intensive monitoring for toxicity (Heparin, Nitro, Insulin, Cardizem)? @ -No Were any procedures done? @ -No Diagnosis/symptom? @ -Cervical radiculopathy Acute, or Chronic, or Acute on Chronic? @ -Acute Uncomplicated (without systemic symptoms) or Complicated (systemic symptoms)? @ -default Side effects of treatment? @ -No Exacerbation, Progression, or Severe Exacerbation? @ -No Poses a threat to life or bodily function? How? (Chest pain, [place], [place], pneumonia, PE, COPD, DKA, ARF, appy, cholecystitis, CVA, Diverticulitis, Homicidal, Suicidal, threat to staff... and all critical care pts) @ -No Disposition Clinical Impression: Cervical radiculopathy Disposition: HOME SELF-CARE Additional Instructions: Please return to the Emergency Department if symptoms worsen or any other concerns. Follow up with orthopedics. Is patient prescribed a controlled substance at d/c from ED?: No Referrals: None,Stated [Primary Care Provider] - 1-2 days Missael Cazares DO [Doctor of Osteopathic Medicine] - 1-2 days Decision Time: 11:43
--- NOTE | 2023-04-29 11:28 | XR ---
EXAMINATION TYPE: XR cervical spine comp DATE OF EXAM: 04/29/2023 COMPARISON: None HISTORY: 47-year-old male with neck pain TECHNIQUE: 6 views FINDINGS: Normal odontoid view. Alignment is maintained. Disc interspaces are preserved. No predental space wid ening or prevertebral soft tissue swelling. No significant bony neural foraminal narrowing seen on ei ther side. IMPRESSION: No specific radiographic abnormality of the cervical spine.
[2023-04-29 11:51] VITALS: BP 150/85; PULSE 76; RESP 16; TEMP 98.1
== END 2023-04-29 12:18 | disposition home or self-care (01) ==
LOC: EC 10:19
DX: M54.12 Radiculopathy, cervical region (principal); I10 Essential (primary) hypertension; Z87.891 Personal history of nicotine dependence; Z79.899 Other long term (current) drug therapy
CPT/HCPCS: 72050; 99284; 96372; J1885

== ENCOUNTER 2024-12-02 11:25 | Observation (INO) | payer BC ==
[2024-12-02 12:07] LABS: Basophils % (A) 0 %; Eosinophils # (A) 0.1 k/uL (0-0.7); Eosinophils % (A) 1 %; HCT 51.7 % (39.0-53.0); HGB 17.4 gm/dL (13.0-17.5); Lymphocytes # (A) 0.8 k/uL (1.0-4.8); Lymphocytes % (A) 7 %; MCH 32.5 pg (25.0-35.0); MCHC 33.6 g/dL (31.0-37.0); MCV 96.9 fL (80.0-100.0); Mean Platelet Volume 7.5; Monocytes # (A) 0.4 k/uL (0-1.0); Monocytes % (A) 3 %; Neutrophils # (A) 9.6 k/uL (1.3-7.7); Neutrophils % (A) 88 %; Platelet Count 224 k/uL (150-450); RBC 5.34 m/uL (4.30-5.90); RDW 12.9 % (11.5-15.5); WBC 10.9 k/uL (3.8-10.6)
--- NOTE | 2024-12-02 12:20 | ED ---
General Adult HPI - General Chief complaint: Neuro Symptoms/Deficit Stated complaint: L ARM PN/HEAD PAIN Time Seen by Provider: 12/02/24 11:37 Source: patient, RN notes reviewed, old records reviewed Mode of arrival: ambulatory Limitations: no limitations - History of Present Illness Initial comments: 49-year-old presenting with a 5-day history of abnormal pupil and left-sided headache. Patient was seen by ophthalmology and was told this was not related to his eye. Patient has no prior history of CVA. He reports moderate to severe left-sided headache. Patient reports left arm pain but no weakness or numbness. He has been dealing with an upper respiratory infection and is currently on antibiotics and steroids. Patient was recommended to have a CT of the brain and this is scheduled for 1 week from now. - Related Data Home Medications Medication Instructions Recorded Confirmed Ibuprofen [Motrin Ib] 800 mg PO Q6H PRN 07/20/20 09/22/20 Previous Rx's Medication Instructions Recorded Cyclobenzaprine [Flexeril] 10 mg PO TID PRN #12 tablet 09/22/20 HYDROcodone/APAP 5-325MG [[place] 1 tab PO Q4HR PRN 3 Days #18 tab 10/02/21 5-325] methocarbamoL [Robaxin-750] 750 mg PO TID PRN #30 tablet 10/02/21 predniSONE 60 mg PO DAILY #30 tab 10/02/21 HYDROcodone/APAP 5-325MG [[place] 1 tab PO Q6HR PRN 3 Days #12 tab 04/27/23 5-325] methocarbamoL [Robaxin-750] 750 mg PO TID PRN #30 tab 04/27/23 predniSONE 50 mg PO DAILY 5 Days #5 tab 04/27/23 Allergies Allergy/AdvReac Type Severity Reaction Status Date / Time No Known Allergies Allergy Verified 12/02/24 11:31 Review of Systems ROS Statement: Those systems with pertinent positive or pertinent negative responses have been documented in the HPI. ROS Other: All systems not noted in ROS Statement are negative. Past Medical History Past Medical History: Hyperlipidemia, Hypertension Additional Past Medical History / Comment(s): 05/01/15 Pt admitted with small partial bowel obstruction. He started about 2300 last nite with R sided low abdominal pain which eventually involved the L lower abdomin. He is nauseated but had not vomitted yet. Walking increased R and L lower abdominal pain. Other HX: Pt states he has had high cholesterol in the past and his B/P was elevated in the ER today, 11/2014 contact dematitis with impetigo. History of Any Multi-Drug Resistant Organisms: None Reported Past Surgical History: Hernia Repair Additional Past Surgical History / Comment(s): L inguinal hernia repair. Colon surgery as a . Past Anesthesia/Blood Transfusion Reactions: No Reported Reaction Additional Past Anesthesia/Blood Transfusion Reaction / Comment(s): Pt has never recieved blood. Past Psychological History: No Psychological Hx Reported Smoking Status: Former smoker Past Alcohol Use History: Occasional Past Drug Use History: None Reported - Past Family History Father History Unknown: Yes Mother Family Medical History: Hypertension, Thyroid Disorder General Exam Limitations: no limitations General appearance: alert, in no apparent distress Head exam: Present: atraumatic, normocephalic Eye exam: Absent: PERRL (Anisocoria, left pupil 3 mm, right pupil 6 mm. Both are reactive) Neck exam: Present: normal inspection Respiratory exam: Present: normal lung sounds bilaterally. Absent: respiratory distress, wheezes Cardiovascular Exam: Present: regular rate, normal rhythm GI/Abdominal exam: Present: soft. Absent: distended, tenderness Extremities exam: Present: normal inspection, normal capillary refill Neurological exam: Present: alert, oriented X3. Absent: CN II-XII intact (Partial paralysis of the left forehead unable to completely raise thigh no facial droop.) Course Vital Signs 12/02/24 11:31 Temperature 98.6 F Pulse Rate 103 H Respiratory 18 Rate Blood Pressure 178/82 O2 Sat by Pulse 97 Oximetry Medical Decision Making - Medical Decision Making Was pt. sent in by a medical professional or institution (, PA, HUMAN RESOURCES SAFETY MANAGER, urgent care, hospital, or [place] health care facility...) When possible be specific @ -No Did you speak to anyone other than the patient for history (EMS, parent, family, police, friend...)? What history was obtained from this source @ -No Did you review nursing and triage notes (agree or disagree)? Why? @ -I reviewed and agree with nursing and triage notes Were old charts reviewed (outside hosp., previous admission, EMS record, old EKG, old radiological studies, urgent care reports/EKG's, [place] health [facility] facility records)? Report findings @ -No old charts were reviewed Differential CVA Ischemic stroke, hemorrhagic stroke, brain tumor, atypical migraine, Wernicke's encephalopathy, seizure, multiple sclerosis, meningitis, encephalitis, hypoglycemia, Guillain-Gilbert, electrolytes disturbance, myasthenia gravis.... This is not meant to be an all-inclusive list EKG interpreted by me (3pts min.). @ -Sinus tachycardia rate of 101, NE interval 166, QRS duration 86, QTc 384 X-rays interpreted by me (1pt min.). @ -None done CT interpreted by me (1pt min.). @CT brain and CT angiography of the head and neck are negative U/S interpreted by me (1pt. min.). @ -None done What testing was considered but not performed or refused? (CT, X-rays, U/S, labs)? Why? @ -None What meds were considered but not given or refused? Why? @ -None Did you discuss the management of the patient with other professionals (professionals i.e. , PA, HUMAN RESOURCES SAFETY MANAGER, lab, RT, psych nurse, manager social, chemical dependency therapist, teacher, records officer, major case detective)? Give summary @ -Case discussed with Dr. Mansoor buchanan for neurology and Dr. Salazar who will admit. Was smoking cessation discussed for >3mins.? @ -No Was critical care preformed (if so, how long)? @ -No Were there social determinants of health that impacted care today? How? (Homelessness, low income, unemployed, alcoholism, drug addiction, transportation, low edu. Level, literacy, decrease access to med. care, halfway, rehab)? @ -No Was there de-escalation of care discussed even if they declined (Discuss DNR or withdrawal of care, Hospice)? DNR status @ -No What co-morbidities impacted this encounter? (DM, HTN, Smoking, COPD, CAD, Cancer, CVA, ARF, Chemo, Hep., AIDS, mental health diagnosis, sleep apnea, morbid obesity)? @ -None Was patient admitted / discharged? Hospital course, mention meds given and route, prescriptions, significant lab abnormalities, going to OR and other pertinent info. @ -49-year-old male with a unilateral headache, anisocoria. Both pupils are reactive. There does appear to be some facial weakness on the forehead left side, no lower facial droop. Patient is hypertensive. CT CT angiography obtained which are unremarkable. The patient will benefit from further evaluation and neurology consultation. Undiagnosed new problem with uncertain prognosis? @ -No Drug Therapy requiring intensive monitoring for toxicity (Heparin, Nitro, Insulin, Cardizem)? @ -No Were any procedures done? @ -No Diagnosis/symptom? @ -Anisocoria, unilateral headache Acute, or Chronic, or Acute on Chronic? @ -[Acute Uncomplicated (without systemic symptoms) or Complicated (systemic symptoms)? @ -Default Side effects of treatment? @ -No Exacerbation, Progression, or Severe Exacerbation? @ -No Poses a threat to life or bodily function? How? (Chest pain, [place], [place], pneumonia, PE, COPD, DKA, ARF, appy, cholecystitis, CVA, Diverticulitis, Homicidal, Suicidal, threat to staff... and all critical care pts) @ -Moderate risk - Lab Data Result diagrams: 12/02/24 11:56 12/02/24 11:56 Lab Results 12/02/24 12/02/24 12/02/24 Range/Units 11:56 11:56 11:56 WBC 10.9 H (3.8-10.6) k/uL RBC 5.34 (4.30-5.90) m/uL Hgb 17.4 (13.0-17.5) gm/dL Hct 51.7 (39.0-53.0) % MCV 96.9 (80.0-100.0) fL MCH 32.5 (25.0-35.0) pg MCHC 33.6 (31.0-37.0) g/dL RDW 12.9 (11.5-15.5) % Plt Count 224 (150-450) k/uL MPV 7.5 Neutrophils % 88 % Lymphocytes % 7 % Monocytes % 3 % Eosinophils % 1 % Basophils % 0 % Neutrophils # 9.6 H (1.3-7.7) k/uL Lymphocytes # 0.8 L (1.0-4.8) k/uL Monocytes # 0.4 (0-1.0) k/uL Eosinophils # 0.1 (0-0.7) k/uL Basophils # 0.0 (0-0.2) k/uL PT 10.4 (10.0-12.5) sec INR 0.9 (<1.2) APTT 22.2 (22.0-30.0) sec Sodium 144 (137-145) mmol/L Potassium 4.2 (3.5-5.1) mmol/L Chloride 104 (98-107) mmol/L Carbon Dioxide 29 (22-30) mmol/L Anion Gap 11 mmol/L BUN 16 (9-20) mg/dL Creatinine 0.88 (0.66-1.25) mg/dL Est GFR (CKD-EPI)AfAm >90 (>60 ml/min/1.73 sqM) Est GFR (CKD-EPI)NonAf >90 (>60 ml/min/1.73 sqM) Glucose 144 H (74-99) mg/dL Calcium 9.8 (8.4-10.2) mg/dL Total Bilirubin 0.7 (0.2-1.3) mg/dL AST 105 H (17-59) U/L ALT 124 H (4-49) U/L Alkaline Phosphatase 88 (38-126) U/L Creatine Kinase 147 (55-170) U/L Troponin I (0.000-0.034) ng/mL Total Protein 8.2 (6.3-8.2) g/dL Albumin 5.2 H (3.5-5.0) g/dL 12/02/24 Range/Units 11:56 WBC (3.8-10.6) k/uL RBC (4.30-5.90) m/uL Hgb (13.0-17.5) gm/dL Hct (39.0-53.0) % MCV (80.0-100.0) fL MCH (25.0-35.0) pg MCHC (31.0-37.0) g/dL RDW (11.5-15.5) % Plt Count (150-450) k/uL MPV Neutrophils % % Lymphocytes % % Monocytes % % Eosinophils % % Basophils % % Neutrophils # (1.3-7.7) k/uL Lymphocytes # (1.0-4.8) k/uL Monocytes # (0-1.0) k/uL Eosinophils # (0-0.7) k/uL Basophils # (0-0.2) k/uL PT (10.0-12.5) sec INR (<1.2) APTT (22.0-30.0) sec Sodium (137-145) mmol/L Potassium (3.5-5.1) mmol/L Chloride (98-107) mmol/L Carbon Dioxide (22-30) mmol/L Anion Gap mmol/L BUN (9-20) mg/dL Creatinine (0.66-1.25) mg/dL Est GFR (CKD-EPI)AfAm (>60 ml/min/1.73 sqM) Est GFR (CKD-EPI)NonAf (>60 ml/min/1.73 sqM) Glucose (74-99) mg/dL Calcium (8.4-10.2) mg/dL Total Bilirubin (0.2-1.3) mg/dL AST (17-59) U/L ALT (4-49) U/L Alkaline Phosphatase (38-126) U/L Creatine Kinase (55-170) U/L Troponin I <0.012 (0.000-0.034) ng/mL Total Protein (6.3-8.2) g/dL Albumin (3.5-5.0) g/dL Disposition Clinical Impression: Headache, Anisocoria Disposition: ADMITTED IP TO THIS HOSP Condition: Stable Is patient prescribed a controlled substance at d/c from ED?: No Referrals: [facility] [NON-STAFF] - 1-2 days [facility] [NON-STAFF] - 1-2 days Forms: Area PCPs Time of Disposition: 14:19
[2024-12-02 12:21] LABS: ALT 124 U/L (4-49); AST 105 U/L (17-59); African American GFR (CKD) >90 (>60 ml/min/1.73 sqM); Albumin 5.2 g/dL (3.5-5.0); Alkaline Phosphatase 88 U/L (38-126); Anion Gap 11 mmol/L; Blood Urea Nitrogen 16 mg/dL (9-20); Calcium 9.8 mg/dL (8.4-10.2); Carbon Dioxide 29 mmol/L (22-30); Chloride 104 mmol/L (98-107); Creatine Kinase 147 U/L (55-170); Glucose 144 mg/dL (74-99); Non-African American GFR(CKD) >90 (>60 ml/min/1.73 sqM); Potassium 4.2 mmol/L (3.5-5.1); Sodium 144 mmol/L (137-145); Total Bilirubin 0.7 mg/dL (0.2-1.3); Total Protein 8.2 g/dL (6.3-8.2)
[2024-12-02 12:23] LABS: INR 0.9 (<1.2); Partial Thromboplastin Time 22.2 sec (22.0-30.0); Prothrombin Time 10.4 sec (10.0-12.5)
--- NOTE | 2024-12-02 13:19 | XR ---
EXAMINATION TYPE: XR chest 2V DATE OF EXAM: 12/02/2024 1:06 PM COMPARISON: Chest x-ray September 26, 2021 CLINICAL INDICATION: Male, 49 years old with history of altered mental status, TECHNIQUE: Frontal and lateral views of the chest are obtained. FINDINGS: There is no focal air space opacity, pleural effusion, or pneumothorax seen. The cardiac silhouette size remains within normal limits. The osseous structures are intact. IMPRESSION: No acute cardiopulmonary process. [facility], , 12/02/2024 1:17 PM
--- NOTE | 2024-12-02 13:30 | CT ---
EXAMINATION TYPE: CT brain wo con DATE OF EXAM: 12/02/2024 COMPARISON: 10/24/2019 CLINICAL INDICATION: Male, 49 years old with history of Neuro deficit, acute, stroke suspected; PHH, numbness left side of head CT DLP: combined dlp 1645.1 mGycm Automated exposure control for dose reduction was used. Findings: The ventricles, basal cisterns and sulci over the convexities are within normal limits and there is n o mass effect or shift of midline structures. No abnormal density is seen throughout the brain parenchyma and there is no acute intra or extra-axia l hemorrhage. The posterior fossa including the brainstem, fourth ventricle and cerebellar pontine angles appear no rmal. Intraorbital contents appear normal and symmetric. There are moderate to marked chronic inflammatory changes in the maxillary sinuses. Mastoid air cells are well aerated The calvarium is intact. IMPRESSION: 1. No acute bleed or mass effect. 2. No significant interval change. 3. [id number] chronic inflammatory changes in the maxillary sinuses. [facility], Workstation: PHONG 12/02/2024 1:27 PM
--- NOTE | 2024-12-02 13:33 | CT ---
EXAMINATION TYPE: CT angio head neck DATE OF EXAM: 12/02/2024 COMPARISON: None CLINICAL INDICATION: Male, 49 years old with history of Anisocoria, acute, stroke suspected severe VELASQUEZ ; PHH, numbness left side of head TECHNIQUE: CTA scan of the head and neck is performed with IV Contrast, patient injected with 65ml m L of Isovue 370, axial images are obtained, coronal and sagittal reformatted images are reviewed. 3D reconstructed images are created on an independent workstation and reviewed. 3-D postprocessing was p erformed. CT DLP: combined 1645.[address] CTDI: mGy Automated exposure control for dose reduction was used. NASCET criteria was used in interpretation of this exam? FINDINGS: The brachiocephalic origins are widely patent and no significant stenosis. There is no significant stenosis of the common or internal carotid arteries within the neck. There is no stenosis of the vertebral arteries. Intracranially, there is no stenosis, segmental occlusion, sizable aneurysm sac or vascular malformat ion. IMPRESSION:. No significant abnormality seen. NASCET criteria was used in interpretation of this exam? [facility], , 12/02/2024 1:31 PM
[2024-12-02] MEDS ORDERED: NALOXONE 0.4 MG/ML 1 ML VIAL IV PRN (14:10)
[2024-12-02] MEDS: HYDROmorphone 0.5 MG/0.5 ML SYRINGE IVP PRN (15:58)
[2024-12-02] MEDS: ASPIRIN 81 MG PO STA (19:45)
--- NOTE | 2024-12-02 20:08 | P.HPIM ---
History of Present Illness This is a pleasant 49 years old female who presents because of headache of 5 days in duration Patient states his headache is about 5/10 in severity. He points to the left druze at the top of the his head. Patient states is nonspecific with no known relieving or precipitating factors No specific weakness or numbness in upper or lower extremity, no dizziness no slurred speech. Patient denies smoking alcohol or illicit drugs. On admission blood pressure slightly elevated 178/82, afebrile, Labs showed unremarkable CBC and BMP. Liver enzymes mildly elevated. Workup including CT of the brain showing no acute findings like hemorrhage mass effect Chest x-ray is negative for acute cardiopulmonary process CTA of the head and neck also showing no significant abnormality as per report EKG showing sinus tachycardia at 110 with Review of Systems Review of systems CONSTITUTIONAL: No fever, no malaise, no fatigue. HEENT: No recent visual problems or hearing problems. Denied any sore throat. CARDIOVASCULAR: No orthopnea, PND, no palpitations, no syncope. PULMONARY: No shortness of breath, no cough, no hemoptysis. GASTROINTESTINAL: No diarrhea, no nausea, no vomiting, no abdominal pain. Nor moactive bowel sounds. NEUROLOGICAL: No headaches, no weakness, no numbness. HEMATOLOGICAL: Denies any bleeding or petechiae. GENITOURINARY: Denies any burning micturition, frequency, or urgency. MUSCULOSKELETAL/RHEUMATOLOGICAL: Denies any joint pain, swelling, or any muscle pain. ENDOCRINE: Denies any polyuria or polydipsia. Past Medical History Past Medical History: Hyperlipidemia, Hypertension Additional Past Medical History / Comment(s): 05/01/15 Pt admitted with small partial bowel obstruction. He started about 2300 last nite with R sided low abdominal pain which eventually involved the L lower abdomin. He is nauseated but had not vomitted yet. Walking increased R and L lower abdominal pain. Other HX: Pt states he has had high cholesterol in the past and his B/P was elevated in the ER today, 11/2014 contact dematitis with impetigo. History of Any Multi-Drug Resistant Organisms: None Reported Past Surgical History: Hernia Repair Additional Past Surgical History / Comment(s): L inguinal hernia repair. Colon surgery as a . Past Anesthesia/Blood Transfusion Reactions: No Reported Reaction Additional Past Anesthesia/Blood Transfusion Reaction / Comment(s): Pt has never recieved blood. Past Psychological History: No Psychological Hx Reported Additional Psychological History / Comment(s): Pt lives alone. He is independe nt. He drives a car. He uses no assistive device or home care agency. Smoking Status: Former smoker Past Alcohol Use History: Occasional Additional Past Alcohol Use History / Comment(s): Pt states he started smoking in high school. He states he is a some day social smoker. He states he smokes a pack of cigarettes every 4 days. He states he is a social drinker with his drink of choice being whiskey. He states he drinks < 14 alcoholic beverages a week. Past Drug Use History: None Reported - Past Family History Father History Unknown: Yes Mother Family Medical History: Hypertension, Thyroid Disorder Medications and Allergies Home Medications Medication Instructions Recorded Confirmed Type Amoxic-Pot Clav 875-125Mg 1 tab PO BID 12/02/24 12/02/24 History [Augmentin 875-125] Fluticasone Nasal [place] [Flonase 1 spr EA NOSTRIL BID 12/02/24 12/02/24 History Nasal [place]] predniSONE See Taper PO DAILY 12/02/24 12/02/24 History prednisoLONE ACETATE 1% OPHTH 1 drop LEFT EYE TID 12/02/24 12/02/24 History [Pred Forte 1%] Allergies Allergy/AdvReac Type Severity Reaction Status Date / Time No Known Allergies Allergy Verified 12/02/24 15:03 Physical Exam Vitals: Vital Signs Temp Pulse Resp BP Pulse Ox 12/02/24 17:57 98.8 F 76 19 160/95 98 12/02/24 15:45 98.7 F 84 17 166/95 96 12/02/24 11:31 98.6 F 103 H 18 178/82 97 Intake and Output 12/02/24 12/02/24 12/02/24 06:59 14:59 22:59 Other: Weight 88.451 kg 88.451 kg GENERAL: The patient is alert and oriented x3, not in any acute distress. Well developed, well nourished. HEENT: Pupils are round and equally reacting to light. EOMI. No scleral icterus. No conjunctival pallor. Normocephalic, atraumatic. No pharyngeal erythema. No thyromegaly. CARDIOVASCULAR: S1 and S2 present. No murmurs, rubs, or gallops. PULMONARY: Chest is clear to auscultation, no wheezing , no crackles. ABDOMEN: Soft, nontender, nondistended, normoactive bowel sounds. No palpable organomegaly. MUSCULOSKELETAL: No joint swelling or deformity. -EXTREMITIES:: Left pupil is small compared to the right side and less reactive to light. No weakness or numbness in both upper or lower extremities. Meningeal signs absent NEUROLOGICAL: Gross neurological examination did not reveal any focal deficits. SKIN: No rashes. no petechiae. Cranial nerves are grossly intact Results CBC & Chem 7: 12/02/24 11:56 12/02/24 11:56 Labs: Abnormal Lab Results - Last 24 Hours (Table) 12/02/24 12/02/24 Range/Units 11:56 11:56 WBC 10.9 H (3.8-10.6) k/uL Neutrophils # 9.6 H (1.3-7.7) k/uL Lymphocytes # 0.8 L (1.0-4.8) k/uL Glucose 144 H (74-99) mg/dL AST 105 H (17-59) U/L ALT 124 H (4-49) U/L Albumin 5.2 H (3.5-5.0) g/dL Assessment and Plan Assessment: Acute left side headache associated with miosis of the left pupil Mild transaminitis Plan: Neurology consult MRI of the brain. Neurology service Monitor liver enzymes, if no improvement may consider further workup Check TSH GI prophylaxis Pepcid DVT prophylaxis low probability, mechanical, ambulate Prognosis guarded
[2024-12-02] MEDS: FAMOTIDINE 20 MG/2 ML VIAL IV SCH (20:53)
[2024-12-03 09:05] LABS: ALT 107 U/L (10-49); AST 60 U/L (14-35); Albumin 4.1 g/dL (3.8-4.9); Albumin/Globulin Ratio 1.78 Ratio (1.60-3.17); Alkaline Phosphatase 78 U/L (41-126); BUN/Creat Ratio 16.75 Ratio (12.00-20.00); Bilirubin, Conjugated 0.24 mg/dL (0.20-0.40); Bilirubin,Unconjugated 0.36 mg/dL (0.20-1.00); Blood Urea Nitrogen 13.4 mg/dL (9.0-27.0); Calcium 9.1 mg/dL (8.7-10.3); Carbon Dioxide 27.2 mmol/L (21.6-31.8); Chloride 101 mmol/L (96-109); Globulin 2.3 g/dL (1.6-3.3); Glucose 100 mg/dL (70-110); Potassium 3.6 mmol/L (3.5-5.5); Sodium 142 mmol/L (135-145); Total Bilirubin 0.6 mg/dL (0.3-1.2); Total Protein 6.4 g/dL (6.2-8.2)
--- NOTE | 2024-12-03 09:17 | P.CNNES ---
History of Present Illness Consult date: 12/02/24 Requesting physician: Curtis Car Reason for Consult: Headache, anisocoria History of Present Illness: Patient is a 49-year-old right-handed male with history of hypertension, hyperlipidemia, came to the hospital today at 11:25 AM, for headache and some visual disturbance. Patient states he developed a new onset headache about 5 days ago, pointing to the left parietal region. It is a constant, continuous ache which he rated 7/10, although with medication goes down to 4-5/10 but never goes away. He denies any nausea vomiting, light or noise sensitivity. Denies any history of migraines or history of regular headaches in the past. Denies any history of head trauma or going to chiropractors. About a day after the onset of headache, he has developed visual disturbance, consisting of seeing little circles going around the eyes bilaterally. He denies any numbness tingling focal weakness slurred speech or facial droop. He does admit to having some dizziness, feeling off balance sometimes. Patient saw an winemaker, who did not find any abnormalities. Therefore he came to the hospital. Vital signs on arrival blood pressure 178/82, which came down to 166/95. Pulse rate 103 temperature 98.6. Blood test shows WBC 10.9 hemoglobin 7.4, normal platelets. PT PTT normal, CMP revealed elevated liver enzymes with AST 105, ALT 124. CK and troponin negative. Influenza, RSV and coronavirus PCR negative. EKG shows sinus tachycardia. Chest x-ray showed no acute cardiopulmonary p rocess. CT head revealed no acute bleed or mass effect. No significant interval change. I personally reviewed CT head, agree with the findings. Mild mucosal thickening of bilateral maxillary sinuses. CTA of head and neck revealed no significant abnormality. Patient denies any prior history of headache. Denies any history of strokes or TIA. Patient denies history of hypertension or diabetes. Denies any tobacco use drink alcohol occasionally. Home medications include prednisone, Augmentin and Flonase. Patient does not take any antiplatelet medication at home. Review of Systems All pertinent positive and negative review of systems patient in the HPI, otherwise unremarkable. Past Medical History Past Medical History: Hyperlipidemia, Hypertension Additional Past Medical History / Comment(s): 05/01/15 Pt admitted with small partial bowel obstruction. He started about 2300 last nite with R sided low abdominal pain which eventually involved the L lower abdomin. He is nauseated but had not vomitted yet. Walking increased R and L lower abdominal pain. Other HX: Pt states he has had high cholesterol in the past and his B/P was elevated in the ER today, 11/2014 contact dematitis with impetigo. History of Any Multi-Drug Resistant Organisms: None Reported Past Surgical History: Hernia Repair Additional Past Surgical History / Comment(s): L inguinal hernia repair. Colon surgery as a . Past Anesthesia/Blood Transfusion Reactions: No Reported Reaction Additional Past Anesthesia/Blood Transfusion Reaction / Comment(s): Pt has never recieved blood. Past Psychological History: No Psychological Hx Reported Smoking Status: Former smoker Past Alcohol Use History: Occasional Past Drug Use History: None Reported - Past Family History Father History Unknown: Yes Mother Family Medical History: Hypertension, Thyroid Disorder Medications and Allergies Home Medications Medication Instructions Recorded Confirmed Type Amoxic-Pot Clav 875-125Mg 1 tab PO BID 12/02/24 12/02/24 History [Augmentin 875-125] Fluticasone Nasal [place] [Flonase 1 spr EA NOSTRIL BID 12/02/24 12/02/24 History Nasal [place]] predniSONE See Taper PO DAILY 12/02/24 12/02/24 History prednisoLONE ACETATE 1% OPHTH 1 drop LEFT EYE TID 12/02/24 12/02/24 History [Pred Forte 1%] Allergies Allergy/AdvReac Type Severity Reaction Status Date / Time No Known Allergies Allergy Verified 12/02/24 15:03 Physical Examination - Vital Signs Vital Signs: Vital Signs Temp Pulse Resp BP Pulse Ox 12/02/24 17:57 98.8 F 76 19 160/95 98 12/02/24 15:45 98.7 F 84 17 166/95 96 12/02/24 11:31 98.6 F 103 H 18 178/82 97 Intake and Output 12/02/24 12/02/24 12/02/24 06:59 14:59 22:59 Other: Weight 88.451 kg Patient is a middle aged male, in no acute distress. Patient is alert awake oriented to time place and person. Speech and language f unctions are normal. Patient can name and repeat very well. No aphasia or dysarthria. Attention, concentration and fund of knowledge is adequate. On cranial nerve examination, patient has left Kiesha's, with gliosis, ptosis, conjunctival injection. Visual nava are full, with no neglect on double simultaneous stimulation. Extraocular muscles are intact with no nystagmus. Face is symmetric, tongue protrudes to the midline. Palatal elevation and sensation normal, hearing and shoulder shrug normal, facial sensation normal. On muscle strength testing, there is no pronator drift and the strength is normal in arms and legs distally and proximally. Deep tendon reflexes are symmetric 2+ all over and plantars downgoing. Sensory to touch is equal with no neglect on double simultaneous stimulation. Cerebellar function testing revealed mild ataxia for [id number] and [id number] testing only on the left side. He is tremulous in the left upper limb as well. Tone and bulk of muscles normal. Gait deferred.. On general examination, there is no carotid bruit or murmur, S1-S2 audible. Chest is clear on consultation. Abdomen is soft nontender. No organomegaly, bowel sounds present. Peripheral pulses are present. No peripheral edema. Results - Laboratory Findings CBC and BMP: 12/02/24 11:56 12/02/24 11:56 Abnormal Lab Findings: Abnormal Labs 12/02/24 12/02/24 11:56 11:56 WBC 10.9 H Neutrophils # 9.6 H Lymphocytes # 0.8 L Glucose 144 H AST 105 H ALT 124 H Albumin 5.2 H Assessment and Plan Assessment: * 49-year-old male presenting with a 5 day history of new onset left parietal constant, aching headache, left Kiesha's syndrome, transient visual disturbance and left-sided ataxia involving the left arm and left leg. Rule out CVA, rule out demyelinating disease like MS. Patient not a candidate for TNK, as he came outside the window. Carotid or vertebral artery dissection and cerebral aneurysm ruled out with CTA. Plan: * CTA of head and neck which revealed no significant abnormalities seen. All vessels are widely patent, with no aneurysm reported. * MRI of the brain with and without contrast rule out CVA versus demyelinating disease. * Patient to be given aspirin 324 mg 1 dose. Further treatment will be based upon MRI results. * Fasting lipid panel, hemoglobin A1c. * Neurology will follow. Thank you for the consult.
--- NOTE | 2024-12-03 15:32 | P.PN ---
Subjective Progress Note Date: 12/03/24 This is a pleasant 49 years old female who presents because of headache of 5 days in duration Patient states his headache is about 5/10 in severity. He points to the left yarsani at the top of the his head. Patient states is nonspecific with no known relieving or precipitating factors No specific weakness or numbness in upper or lower extremity, no dizziness no slurred speech. Patient denies smoking alcohol or illicit drugs. On admission blood pressure slightly elevated 178/82, afebrile, Labs showed unremarkable CBC and BMP. Liver enzymes mildly elevated. Workup including CT of the brain showing no acute findings like hemorrhage mass effect Chest x-ray is negative for acute cardiopulmonary process CTA of the head and neck also showing no significant abnormality as per report EKG showing sinus tachycardia at 110 with 1/10. Patient seen and examined. Still complaining of headache. Denies any slurred speech. Denies any blurred vision REVIEW OF SYSTEMS: CONSTITUTIONAL: No fever, no malaise,. CARDIOVASCULAR: No chest pain, no palpitations, no syncope. PULMONARY: No shortness of breath, no cough, GASTROINTESTINAL: No diarrhea, no nausea, no vomiting, no abdominal pain. NEUROLOGICAL: As mentioned above PHYSICAL EXAMINATION: GENERAL: The patient is alert and oriented x3, not in any acute distress. Well developed, well nourished. HEENT: Pupils are round and equally reacting to light. EOMI. No scleral icterus. No conjunctival pallor. Normocephalic, atraumatic. No pharyngeal erythema. No thyromegaly. CARDIOVASCULAR: S1 and S2 present. No murmurs, rubs, or gallops. PULMONARY: Chest is clear to auscultation, no wheezing or crackles. ABDOMEN: Soft, nontender, nondistended, normoactive bowel sounds. No palpable organomegaly. MUSCULOSKELETAL: No joint swelling or deformity. EXTREMITIES: No cyanosis, clubbing, or pedal edema. NEUROLOGICAL: Gross neurological examination did not reveal any focal deficits. Left proptosis and miosis seen SKIN: No rashes. Assessment and plan Acute left side headache Mild transaminitis Monitor vital signs Monitor CBC Monitor CMP Ordered neurochecks Ordered LFT monitoring MRI brain ordered Neurology following Labs and medication were reviewed.. Continue same treatment. Continue with symptomatic treatment. Resume home medication. Monitor labs and vitals. DVT and GI prophylaxis. Further recommendations as per clinical course of the patient Dictation was produced using [employer] dictation software. please excuse any grammatical, word or spelling errors. Objective - Vital Signs Vital signs: Vital Signs Temp 98.1 F 12/03/24 06:50 Pulse 62 12/03/24 06:50 Resp 16 12/03/24 06:50 BP 157/87 12/03/24 06:50 Pulse Ox 95 12/03/24 09:44 FiO2 Intake & Output 12/02/24 12/03/24 12/03/24 18:59 06:59 18:59 Weight 88.451 kg 88.451 kg Other: Voiding Method Toilet # Voids 2 # Bowel Movements 0 - Labs CBC & Chem 7: 12/02/24 11:56 12/03/24 03:25 Labs: Abnormal Lab Results - Last 24 Hours (Table) 12/02/24 12/02/24 12/03/24 Range/Units 11:56 11:56 03:25 WBC 10.9 H (3.8-10.6) k/uL Neutrophils # 9.6 H (1.3-7.7) k/uL Lymphocytes # 0.8 L (1.0-4.8) k/uL Anion Gap 13.80 H (4.00-12.00) mmol/L Glucose 144 H (74-99) mg/dL AST 105 H 60 H (17-59) U/L ALT 124 H 107 H (4-49) U/L Albumin 5.2 H (3.5-5.0) g/dL
--- NOTE | 2024-12-03 16:09 | MR ---
INDICATION: Patient age:Male; 49 years old; Reason for study: Ataxia, horners (left), r/o CVA vs demyelination; PHH. COMPARISON: CT brain 12/02/2024, CTA head and neck 12/02/2024, CT brain C-spine facial bones 10/24/2019. TECHNIQUE: Multi planar, multi sequence imaging was performed through the brain. The patient was then given 9 cc of Gadobutrol intravenously and multi planar, T1 fat-saturation images were obtained. Add itional demyelination sequences were performed. FINDINGS: Motion degraded examination. The andres-white junctions, ventricular system, basal cisterns appear unremarkable. Age-appropriate cer ebral volume. Diffusion-weighted imaging shows no evidence of restricted diffusion to suggest acute/s ubacute infarct. Intracranial arterial flow voids are maintained. Midline structures show no abnormal ity. No cerebral intraparenchymal FLAIR signal abnormalities. The susceptibility weighted images do n ot reveal any evidence for micro-hemorrhage. After administration of gadolinium, no abnormal enhancem ent is seen. The bone marrow signal is within normal limits. The globes are unremarkable. Scattered mild to moder ate mucosal sinus disease involving the bilateral maxillary, sphenoid, ethmoid, and left frontal sinu ses. IMPRESSION: 1. No evidence of intracranial mass, acute/subacute infarct, or abnormal enhancement. 2. [id number] paranasal sinus mucosal disease. [facility], , 12/03/2024 4:07 PM
[2024-12-03] MEDS: ACETAMINOPHEN TAB 325 MG TAB PO PRN (16:26)
[2024-12-03] MEDS: predniSONE 20 MG TAB PO SCH (20:56)
[2024-12-03] MEDS ORDERED: INDOMETHACIN 25 MG CAP PO SCH (22:00)
--- NOTE | 2024-12-04 00:30 | P.PN ---
Subjective Progress Note Date: 12/03/24 Patient was seen for a follow-up. Patient is laying comfortably in the bed. Patient complaining of left parietal headache 03/03. On asking detailed location of the headache it appears to involve the left parietal region, left frontal, and left periorbital region. He denies any diplopia, dysphagia, or any numbness tingling. Patient states the headache has been constant, continuous persistent but has not gone away at all. Sometimes the headache wakes him up at night and is very severe, like his eyeball will blow up. He denies excessive lacrimation. Patient denies exertional headache, or headaches related to intercourse. Denies any previous history of cluster headaches. Objective - Vital Signs Vital signs: Vital Signs Temp 98.5 F 12/03/24 16:21 Pulse 73 12/03/24 16:21 Resp 16 12/03/24 16:21 BP 145/90 12/03/24 16:21 Pulse Ox 97 12/03/24 16:21 FiO2 Intake & Output 12/03/24 12/03/24 12/04/24 06:59 18:59 06:59 Intake Total 591 Balance 591 Weight 88.451 kg Intake: Oral 591 Other: Voiding Method Toilet # Voids 2 3 # Bowel Movements 0 - Exam Mental status, speech and language functions are normal. Cranial nerves significant for left Kiesha's, with left ptosis, miosis, and left conjunctival injection. He does not know about decreased sweating in the left forehead, as he has not had any situation that would lead to sweating. Rest of the cranial nerves are normal. Visual nava are full. On muscle status and there is no pronator drift and the strength is normal in arms and legs. Patient has mild ataxia for [id number] testing only with the left leg. No definitive ataxia with the left upper limb. No dysdiadochokinesia. Sensory to touch is equal with no neglect. No herpetic rash visible. - Labs CBC & Chem 7: 12/02/24 11:56 12/03/24 03:25 Labs: Abnormal Lab Results - Last 24 Hours (Table) 12/03/24 Range/Units 03:25 Anion Gap 13.80 H (4.00-12.00) mmol/L AST 60 H (14-35) U/L ALT 107 H (10-49) U/L Assessment and Plan Assessment: * 49-year-old male presenting with a 5 day history of new onset left parietal constant, aching headache, left Kiesha's syndrome, transient visual disturbance and left-sided ataxia involving the left arm and left leg. Acute CVA ruled out. No evidence of demyelinating disease on the MRI brain. No evidence of carotid or vertebral artery dissection and cerebral aneurysm ruled out with CTA. Differential diagnosis is between hemicrania continua, atypical cluster headache or autonomic trigeminal cephalgia. Plan: * CTA of head and neck which revealed no significant abnormalities seen. All vessels are widely patent, with no aneurysm reported. * MRI of the brain with and without contrast revealed no evidence of intracranial mass, acute/subacute infarct or abnormal enhancement. Mild to moderate paranasal sinus mucosal disease. I personally reviewed MRI and agree with the findings. No evidence of acute CVA or any demyelinating disease. * No need for antiplatelet medication. * Fasting lipid panel pending, hemoglobin A1c 5.7. * Patient's headache and left Kiesha's is of unclear cause. The location of headache is somewhat of cluster headaches. We will try prednisone 60 mg daily to see if it resolves the headache. * Continue Pepcid.
[2024-12-04 07:11] VITALS: BP 135/83; PULSE 62; RESP 15; TEMP 98.4
--- NOTE | 2024-12-04 12:56 | P.DS ---
Providers Date of admission: 12/02/24 14:12 Expected date of discharge: 12/04/24 Attending physician: Butch Salazar MD Consults: 12/02/24 14:10 Consult Physician Urgent Consulting Provider: John Max Consult Reason/Comments: Headache, anisocoria Do you want consulting provider notified?: Yes Primary care physician: Stated None Hospital Course: Discharge diagnoses; Acute left side headache Mild transaminitis Hospital course; This is a pleasant 49 years old female who presents because of headache of 5 days in duration Patient states his headache is about 5/10 in severity. He points to the left mormon at the top of the his head. Patient states is nonspecific with no known relieving or precipitating factors No specific weakness or numbness in upper or lower extremity, no dizziness no slurred speech. Patient denies smoking alcohol or illicit drugs. On admission blood pressure slightly elevated 178/82, afebrile, Labs showed unremarkable CBC and BMP. Liver enzymes mildly elevated. Workup including CT of the brain showing no acute findings like hemorrhage mass effect Chest x-ray is negative for acute cardiopulmonary process CTA of the head and neck also showing no significant abnormality as per report EKG showing sinus tachycardia at 110 with 12/03. Patient seen and examined. Still complaining of headache. Denies any slurred speech. Denies any blurred vision 12/04. Patient seen and examined. MRI of the brain with and without contrast revealed no evidence of intracranial mass, acute/subacute infarct or abnormal enhancement. Neurology started patient on prednisone, patient headache improved. Neurology recommended discharging patient on tapering dose of prednisone. Patient to follow-up outpatient with neurology PHYSICAL EXAMINATION: GENERAL: The patient is alert and oriented x3, not in any acute distress. Well developed, well nourished. HEENT: Pupils are round and equally reacting to light. EOMI. No scleral icterus. No conjunctival pallor. Normocephalic, atraumatic. No pharyngeal erythema. No thyromegaly. CARDIOVASCULAR: S1 and S2 present. No murmurs, rubs, or gallops. PULMONARY: Chest is clear to auscultation, no wheezing or crackles. ABDOMEN: Soft, nontender, nondistended, normoactive bowel sounds. No palpable organomegaly. MUSCULOSKELETAL: No joint swelling or deformity. EXTREMITIES: No cyanosis, clubbing, or pedal edema. NEUROLOGICAL: Gross neurological examination did not reveal any focal deficits. SKIN: No rashes. Dictation was produced using [employer] dictation software. please excuse any grammatical, word or spelling errors. Patient Condition at Discharge: Stable Plan - Discharge Summary Discharge Rx Participant: Yes New Discharge Prescriptions: New Omeprazole Magnesium [PriLOSEC OTC] 20 mg PO DAILY #30 tab predniSONE 10 mg PO DAILY 10 Days #30 tab Continue Amoxic-Pot Clav 875-125Mg [Augmentin 875-125] 1 tab PO BID prednisoLONE ACETATE 1% OPHTH [Pred Forte 1%] 1 drop LEFT EYE TID Fluticasone Nasal [place] [Flonase Nasal [place]] 1 spr EA NOSTRIL BID Discontinued predniSONE See Taper PO DAILY Discharge Medication List Amoxic-Pot Clav 875-125Mg [Augmentin 875-125] 1 tab PO BID 12/02/24 [History] Fluticasone Nasal [place] [Flonase Nasal [place]] 1 spr EA NOSTRIL BID 12/02/24 [History] prednisoLONE ACETATE 1% OPHTH [Pred Forte 1%] 1 drop LEFT EYE TID 12/02/24 [History] Omeprazole Magnesium [PriLOSEC OTC] 20 mg PO DAILY #30 tab 12/04/24 [Rx] predniSONE 10 mg PO DAILY 10 Days #30 tab 12/04/24 [Rx] Follow up Appointment(s)/Referral(s): JoseE Frost MD [STAFF PHYSICIAN] - 1 Week Gonzalez Gibbons MD [STAFF PHYSICIAN] - 1 Week Discharge/Stand Alone Forms: Area PCPs Discharge Disposition: HOME SELF-CARE
[2024-12-05 11:29] LABS: Chol/HDL Ratio 3.48 Ratio; LDL Cholesterol,Calculated 118.4 mg/dL (0.0-131.0)
== END 2024-12-04 13:49 | disposition home or self-care (01) ==
LOC: EC 11:25 → 6NMEDSUR 14:12
PROVIDERS: ADMIT Internal Medicine; ATTEND Internal Medicine
DX: R51.9 Headache, unspecified (principal); R74.01 Elevation of levels of liver transaminase levels; G90.2 Horner's syndrome; I10 Essential (primary) hypertension; F17.210 Nicotine dependence, cigarettes, uncomplicated; Z79.899 Other long term (current) drug therapy
CPT/HCPCS: 96376 ×2; 96375; 96374; 99285; 36415; 94760; 80061; 80053; 80048; 80076; 84443; 82550; 84484; 85025; 85610; 85730; 83036; 87636; 71046; 70496; 70450; 70498; 70553; G0378 ×3; J3490 ×3; J7512 ×2; J1171 ×2; Q9967; A9585

== ENCOUNTER → 2025-02-14 | Outpatient (CLI) | payer BC ==
--- NOTE | 2025-02-14 08:48 | MR ---
MRI CERVICAL SPINE: CLINICAL HISTORY: Neck pain into paramjit upper extremities, headaches Neck pain into paramjit upper extremitie s, headaches TECHNIQUE: Multiplanar, multisequence imaging of the cervical spine is performed without IV contrast. COMPARISON: CTA neck December 02, 2024 FINDINGS: Sagittal images of the cervical spine show the craniocervical junction to appear within nor mal limits. The cervical and upper thoracic spinal cord is normal in course, caliber, and signal. Th ere is grade 1 retrolisthesis C3 on C4 and C5 on C6 along with C6 on C7 redemonstrated. The vertebra l body heights are normal. There is mild to moderate disc space narrowing at C6-C7 level redemonstrat ed. The bone marrow signal intensity is within normal limits. Axial images at C2-C3 level are within normal limits. Axial images at C3-C4 level show right paracentral/foraminal disc protrusion effacing anterolateral t hecal sac and causing asymmetric moderate right-sided neural foraminal narrowing. Axial images at C4-C5 levels uncovertebral facet degenerative changes bilaterally causing mild right and moderate to severe left-sided neural foraminal narrowing. Axial images at C5-C6 level show uncovertebral facet degenerative changes bilaterally causing mild-to -moderate bilateral neural foraminal narrowing. Axial images at C6-C7 level shows broad-based right paracentral disc protrusion effacing the anterola teral thecal sac and causing moderate to advanced bilateral neural foraminal narrowing. Axial images at C7-T1 level appear within normal limits.. IMPRESSION: Multilevel spondylolisthesis and degenerative change in the cervical spine as detailed ab ove. [facility], , 02/14/2025 8:45 AM
== END | disposition home or self-care (01) ==
LOC: RADMRIMAIN 06:47
PROVIDERS: ATTEND Psychiatry & Neurology Neurology
DX: M50.223 Other cervical disc displacement at C6-C7 level (principal); M47.812 Spondylosis without myelopathy or radiculopathy, cervical region; M43.12 Spondylolisthesis, cervical region; M99.71 Connective tissue and disc stenosis of intervertebral foramina of cervical region
CPT/HCPCS: 72141